=== PATIENT | female | born 1945 | race Caucasian/White ===

== ENCOUNTER 2020-11-14 13:50 | Inpatient (IN) | payer OTHER, BC ==
[2020-11-14 14:59] LABS: BASO % 1.1 % (0-2.0); HEMATOCRIT 41.1 % (32.4-45.2); HEMOGLOBIN 13.9 GM/dl (10.7-15.3); MCH 28.7 pg (25.7-33.7); MCHC 33.7 g/dl (32.0-36.0); MEAN CELL VOLUME 85.1 fl (80-96); MEAN PLT VOLUME 9.3 fl (7.5-11.1); MONO % 4.9 % (3.8-10.2); PLATELET COUNT 210 10^3/uL (134-434); RBC 4.83 M/mm3 (3.60-5.2); RDW 12.8 % (11.6-15.6); WHITE BLOOD COUNT 7.4 K/mm3 (4.0-10.8)
[2020-11-14 15:15] LABS: ALK PHOS 49 U/L (45-117); ANION GAP 12 MMOL/L (8-16); CALCIUM 8.7 mg/dl (8.5-10); CHLORIDE 98 mmol/L (98-107); CO2 26 mmol/L (21-32); CREATININE 0.9 mg/dl (0.55-1.3); GLUCOSE,RANDOM 106 mg/dl (74-106); SGOT/AST 24 U/L (15-37); SGPT/ALT 19 U/L (13-61); SODIUM 136 mmol/L (136-145); TOT PROT 6.6 g/dl (6.4-8.2)
[2020-11-14 15:44] LABS: CHOLESTEROL 189 mg/dl (50-200); HDL CHOLESTEROL 70 mg/dl (40-60); LDL CHOLESTEROL (ONLY DFH) 105 mg/dl (5-100); TRIGLYCERIDES 71 mg/dl (0-150)
[2020-11-14] MEDS ORDERED: ASPIRIN 325 MG TABLET PO ONE (16:13)
[2020-11-14 16:20] LABS: ACTIVATED PTT 20.7 SECONDS (25.2-36.5)
[2020-11-14 16:25] LABS: INR 0.98 (0.82-1.09)
[2020-11-14] MEDS ORDERED: ASPIRIN 325 MG TABLET ONE (16:31)
[2020-11-14] MEDS ORDERED: ATORVASTATIN CA 80 MG TABLET (FP) PO ONE (17:08)
[2020-11-14] MEDS ORDERED: ATORVASTATIN CA 80 MG TABLET (FP) ONE (17:24)
[2020-11-14 21:23] VITALS: BMI 34.0
[2020-11-14] MEDS: CARVEDILOL 6.25 MG TABLET (FP) PO SCH (23:51)
[2020-11-15] MEDS ORDERED: POTASSIUM CHLORIDE TABS 20 MEQ TABLET.ER (FP) PO ONE (00:31)
[2020-11-15 05:23] LABS: BASO % 0.5 % (0-2.0); EOS % 0.8 % (0-4.5); HEMATOCRIT 39.5 % (32.4-45.2); HEMOGLOBIN 12.9 GM/dL (10.7-15.3); LYMPH % 24.8 % (8-40); MCH 27.2 pg (25.7-33.7); MCHC 32.7 g/dl (32.0-36.0); MEAN CELL VOLUME 83.2 fl (80-96); MEAN PLT VOLUME 9.1 fl (7.5-11.1); MONO % 7.9 % (3.8-10.2); PLATELET COUNT 197 10^3/uL (134-434); RBC 4.75 M/mm3 (3.60-5.2); RDW 13.5 % (11.6-15.6); WHITE BLOOD COUNT 7.4 K/mm3 (4.0-10.0)
[2020-11-15 05:47] LABS: CHLORIDE 108 mmol/L (98-107); SODIUM 144 mmol/L (136-145)
[2020-11-15 05:49] LABS: ANION GAP 6 MMOL/L (8-16); BLOOD UREA NITROGEN 12.4 mg/dL (7-18); CALCIUM 8.3 mg/dL (8.5-10.1); CO2 30 mmol/L (21-32); GLUCOSE,RANDOM 83 mg/dL (74-106); MAGNESIUM 1.8 mg/dL (1.8-2.4)
[2020-11-15 05:52] LABS: CREATININE 0.7 mg/dL (0.55-1.3)
[2020-11-15] MEDS: HEPARIN NA (PORCINE) 5,000 UNITS/ML 1ML VIAL SQ SCH ×3 (06:30→21:35)
[2020-11-15] MEDS ORDERED: TRIAMTERENE AND HCTZ - 37.5 MG/25 MG CAPSULE PO SCH (10:00)
[2020-11-15] MEDS: CARVEDILOL 6.25 MG TABLET (FP) PO SCH ×3 (12:15→21:35)
[2020-11-15 21:07] VITALS: BP 122/56; PULSE 65; TEMP 98.3
== END 2020-11-15 21:50 | disposition home or self-care (01) | DRG 72 ==
LOC: FER 13:50 → UNDOADMIN 17:09 → FM/S 17:09
PROVIDERS: ATTEND Nurse Practitioner Family
DX: G45.4 Transient global amnesia (principal); I10 Essential (primary) hypertension; R41.82 Altered mental status, unspecified
CPT/HCPCS: 36415; 70450-TC; 70553-TC; 80048; 80053; 80061; 81003; 82550; 83036; 83735; 84443; 84484; 85025; 85610; 85730; 86850; 86900; 86901; 87086; 93005; 99285-25; A9579; C9803; J1644; U0003; U0005